=== PATIENT | male | born 1975 | race Caucasian/White ===

== ENCOUNTER 2023-10-21 14:00 | Emergency (ER) | payer BC ==
[2023-10-21 14:07] VITALS: RESP 18; TEMP 98.7; BMI 26.6
[2023-10-21] MEDS ORDERED: SODIUM CHLORIDE 0.9% 500 ML INFUS.BAG IV ONE ×2 (14:17→15:55)
[2023-10-21 14:53] LABS: HEMOGLOBIN 15.2 G/dL (11.7-16.9); MCH 30.6 pg (25.7-33.7); MCHC 34.5 g/dl (32.0-35.9); MEAN CELL VOLUME 88.8 fl (80-96); MEAN PLT VOLUME 8.4 fl (7.5-11.1); PLATELET COUNT 235.9 10^3/uL (134-434); RBC 4.95 10^6/uL (4.00-5.60); RDW 13.8 % (11.9-15.9); WHITE BLOOD COUNT 8.1 10^3/uL (4.0-10.8)
[2023-10-21 15:05] LABS: ALBUMIN 4.7 g/dl (3.4-5.0); BILIRUBIN,TOTAL 0.4 mg/dl (0.2-1); CALCIUM 9.6 mg/dl (8.5-10.1); CREATININE 0.8 mg/dl (0.6-1.3); POTASSIUM 3.9 mmol/L (3.5-5.1)
[2023-10-21 17:15] LABS: N-TERMINAL BNP 16.5 pg/ml (5-125)
[2023-10-21 18:24] VITALS: BP 129/77; PULSE 76
[2023-10-21 21:36] LABS: PLATELET ESTIMATE ADEQUATE
== END 2023-10-21 18:30 | disposition home or self-care (01) ==
LOC: FER 14:00
DX: E86.0 Dehydration (principal); R51.9 Headache, unspecified; Z20.822 Contact with and (suspected) exposure to COVID-19
CPT/HCPCS: 0241U-QW; 36415; 71045-TC-FY; 80053; 83880; 84484; 85027; 93005; 99285-25